=== PATIENT | male | born 1955 | race Caucasian/White ===

== ENCOUNTER → 2017-12-11 12:59 | Outpatient (CLI) | payer OTHER, SELFPAY ==
[2017-12-11 15:01] LABS: Appearance Urine UA Clear; Color Urine UA Yellow; Specific Gravity Urine UA <=1.005 (1.000-1.035); pH Urine UA 5.5 (4.5-8.0)
[2017-12-11 15:02] LABS: Bilirubin Urine UA Negative (NEGATIVE); Glucose Urine UA Normal (Normal); Ketones Urine UA NEGATIVE (NEGATIVE); Nitrite Urine UA Negative (Negative); Occult Blood Urine UA Trace-Lysed (Negative); Protein Urine UA Negative (Negative); Urobilinogen Urine UA 0.2 E.U./dL (0.2)
[2017-12-11 15:03] LABS: Bacteria Urine Few (2-10); Leukocyte Esterase Urine UA 1+ (NEGATIVE); RBC Urine 0-1/HPF (0-5/HPF); Squamous Epithelial Cell Urine 0-1 /HPF; WBC Urine 5-10/HPF (0-5/HPF)
[2017-12-11 15:04] LABS: Culture Indicated Urine Specimen Cultured
== END ==
PROVIDERS: Family Provider Internal Medicine; PCP Internal Medicine; Visit Provider Urology
DX: N39.0 Urinary tract infection, site not specified (principal)
CPT/HCPCS: 81001; 87086

== ENCOUNTER → 2018-03-26 09:44 | Outpatient (CLI) | payer OTHER, SELFPAY ==
[2018-03-26 11:03] LABS: Appearance Urine UA SL CLOUDY; Bilirubin Urine UA NEGATIVE (NEGATIVE); Color Urine UA YELLOW; Glucose Urine UA NEGATIVE (Negative); Ketones Urine UA NEGATIVE (NEGATIVE); Leukocyte Esterase Urine UA 3+ (NEGATIVE); Nitrite Urine UA NEGATIVE (Negative); Occult Blood Urine UA TRACE-INTACT (Negative); Protein Urine UA NEGATIVE (Negative); Specific Gravity Urine UA <=1.005 (1.000-1.035); Urobilinogen Urine UA 0.2 E.U./dL (0.2)
[2018-03-26 11:33] LABS: Bacteria Urine Moderate (10-30); Culture Indicated Urine Specimen Cultured; RBC Urine 1-5/HPF (0-5/HPF); Squamous Epithelial Cell Urine 1-5 /HPF; WBC Urine 30-100/HPF (0-5/HPF)
== END ==
PROVIDERS: PCP Internal Medicine; Visit Provider Urology
DX: N39.0 Urinary tract infection, site not specified (principal)
CPT/HCPCS: 81001; 87077; 87086; 87186

== ENCOUNTER → 2018-04-28 11:29 | Outpatient (CLI) | payer OTHER, SELFPAY ==
[2018-04-28 12:01] LABS: Appearance Urine UA CLEAR; Bilirubin Urine UA NEGATIVE (NEGATIVE); Color Urine UA YELLOW; Glucose Urine UA NEGATIVE (Negative); Ketones Urine UA NEGATIVE (NEGATIVE); Leukocyte Esterase Urine UA 1+ (NEGATIVE); Nitrite Urine UA NEGATIVE (Negative); Occult Blood Urine UA NEGATIVE (Negative); Protein Urine UA NEGATIVE (Negative); Urobilinogen Urine UA 0.2 E.U./dL (0.2); pH Urine UA 5.5 (4.5-8.0)
[2018-04-28 12:25] LABS: Bacteria Urine Few (2-10); Culture Indicated Urine Specimen Cultured; RBC Urine 0-1/HPF (0-5/HPF); Squamous Epithelial Cell Urine 1-5 /HPF; WBC Urine 10-30/HPF (0-5/HPF)
== END ==
PROVIDERS: Family Provider Internal Medicine; PCP Internal Medicine; Visit Provider Urology
DX: N39.0 Urinary tract infection, site not specified (principal)
CPT/HCPCS: 81001; 81015; 87077; 87086; 87186

== ENCOUNTER → 2019-08-31 10:19 | Outpatient (CLI) | payer OTHER, SELFPAY ==
[2019-09-01 08:17] LABS: PSA Ultrasensitive <0.014 ng/mL (0.000-4.000)
== END ==
PROVIDERS: Family Provider Internal Medicine; Referring Provider Urology; Visit Provider Urology
DX: C61 Malignant neoplasm of prostate (principal)
CPT/HCPCS: 36415; 84153

== ENCOUNTER → 2020-08-17 08:29 | Outpatient (CLI) | payer OTHER, SELFPAY ==
[2020-08-18 05:42] LABS: PSA Ultrasensitive <0.014 ng/mL (0.000-4.000)
== END ==
PROVIDERS: Family Provider Internal Medicine; PCP Internal Medicine; Referring Provider Urology; Visit Provider Urology
DX: C61 Malignant neoplasm of prostate (principal)
CPT/HCPCS: 36415; 84153

== ENCOUNTER → 2020-12-21 13:07 | Outpatient (CLI) | payer OTHER, SELFPAY ==
[2020-12-21 14:26] LABS: COVID19 -Nasal RAPID Negative (Negative)
== END ==
PROVIDERS: Family Provider Internal Medicine; PCP Internal Medicine; Visit Provider Nurse Practitioner Family
DX: Z20.822 Contact with and (suspected) exposure to COVID-19 (principal)
CPT/HCPCS: 87635

== ENCOUNTER 2021-09-03 19:15 | Emergency (ER) | payer OTHER, MEDICARE, SELFPAY ==
[2021-09-03 19:28] VITALS: BP 139/94; PULSE 81; RESP 15; TEMP 37.9; O2SAT 96; BMI 35.2
--- NOTE | 2021-09-03 19:45 | ED.GENADULT ---
HPI - General Adult General Chief complaint: Urogenital-Male Stated complaint: bladder infection, states needs a catheter Time Seen by Provider: 09/03/21 19:30 Source: patient Mode of arrival: Ambulatory Limitations: no limitations History of Present Illness HPI narrative: 66-year-old male. Has a history of prostate cancer. Has had as prostate removed. He also had a bladder diverticulum that was repaired at the time of his prostate removal. Is here for evaluation of what he thinks is a bladder infection. He had some minor discomfort in his lower abdomen that started this morning. He states that he is also having problems emptying his bladder. He has no abdominal tenderness. No chest pain. No shortness of breath. No testicular pain. No specific dysuria nor frequency nor burning or itching. No change in bowel habits. He states that he was persuaded to come to the emergency department by his and also has been told by his urologist in the past that if he ever had infection he needs to have it treated before it reached his kidneys. Related Data Previous Rx's Medication Instructions Recorded clopidogrel 75 mg tablet (Plavix) 75 mg PO QDAY #20 tabs 06/14/16 Allergies Allergy/AdvReac Type Severity Reaction Status Date / Time No Known Drug Allergies Allergy Unknown Verified 09/03/21 19:34 onion Allergy Unknown Verified 09/03/21 19:34 ONION Allergy Unknown Uncoded 12/20/20 10:01 Review of Systems Constitutional Constitutional: Denies fever(s) Cardiovascular Cardiovascular: Reports system reviewed and no additional complaints, except as documented Respiratory Respiratory: Reports system reviewed and no additional complaints, except as documented Gastrointestinal Gastrointestinal: Reports as per HPI and Reports system reviewed and no additional complaints, except as documented Genitourinary Genitourinary: Reports system reviewed and no additional complaints, except as documented and Reports as per HPI Integumentary/Breasts Skin/Breast: Reports system reviewed and no additional complaints, except as documented Neurologic Neurologic: Reports system reviewed and no additional complaints, except as documented Hematologic/Lymphatic On Anticoagulants: No Patient History Medical History (Updated 09/03/21 @ 20:49 by Wander Avila DO) Prostate cancer Surgical History (Updated 09/03/21 @ 19:51 by Wander Avila DO) H/O prostatectomy Social History Smoking Status: Never smoker Smoking Status: Never smoker alcohol intake frequency: holidays/special occasions only Substance Use Type: does not use Exam Initial Vital Signs Initial Vital Signs: Vital Signs Temperature 100.3 F H 09/03/21 19:28 Pulse Rate 81 09/03/21 19:28 Respiratory Rate 15 09/03/21 19:28 Blood Pressure 139/94 H 09/03/21 19:28 Pulse Oximetry 96 09/03/21 19:28 Oxygen Delivery Method 09/03/21 19:28 Const General: cooperative, healthy appearing and comfortable HENMT Head: normal to inspection and normocephalic Eyes General: Yes appearance normal, both eyes and all related structures Resp Effort & Inspection: normal respiratory effort Auscultation: clear to auscultation bilaterally Cardio Rate: regular rate Rhythm: regular rhythm GI Inspection: normal to inspection Palpation: soft and No tender Back/Spine/Pelvis Back: No CVA tenderness Skin General: no rashes or lesions noted Neuro General: patient alert, patient awake and moves all extremities Extrem General: normal to inspection and capillary refill normal Psych Appearance: grossly normal and well kempt Course Orders Ordered: ED Orders 09/03/21 19:35 Urine Culture Stat Urine Microscopic Stat Vital Signs Vital signs: Vital Signs - 8 hr 09/03/21 19:28 09/03/21 21:16 Temperature 100.3 F H Pulse Rate 81 73 Respiratory Rate 15 18 Blood Pressure 139/94 H 158/79 H Pulse Oximetry 96 98 Oxygen Delivery Method Room Air Room Air Medical Decision Making Lab Data Labs: Lab Results 09/03/21 Range/Units 19:35 Urine RBC 1-5/hpf (0-5/HPF) Urine WBC 1-5/hpf (0-5/HPF) Ur Squamous Epith Cells 0-1 /hpf (0-5/HPF) Urine Bacteria None seen (None) Ur Culture Indicated? Culture not indicate Urine Dip Bedside Urine Glucose Negative Bedside Urine Bilirubin - Negative Bedside Urine Ketone - Negative Urine Specific Spencer 1.015 Bedside Urine Occult Blood - Negative Bedside Urine pH 6 Bedside Urine Protein - Negative Bedside Urine Urobilinogen - Negative Bedside Urine Nitrite - Negative Bedside Urine Leukocytes - Negative Esterase Point of care testing: Urine Dip Bedside Urine Glucose Negative Bedside Urine Bilirubin - Negative Bedside Urine Ketone - Negative Urine Specific Spencer 1.015 Bedside Urine Occult Blood - Negative Bedside Urine pH 6 Bedside Urine Protein - Negative Bedside Urine Urobilinogen - Negative Bedside Urine Nitrite - Negative Bedside Urine Leukocytes - Negative Esterase MDM Narrative Medical decision making narrative: Patient's urinalysis today does not show any signs of an infection. Bladder scan showed approximately 700 cc so a Brian catheter was placed with return of 700-800 cc. No blood. He has no other symptoms that would make me concerned about a specific source of infection to include skin symptoms are lung symptoms or abdominal symptoms. No indication for antibiotics. Will wait for the culture to resolved. Will discharge home with a Brian catheter in place. He will contact his urologist for a follow-up. He is given return precautions. He expressed understanding and agreement Discharge Plan Departure Patient Disposition: Home Clinical Impression: Acute retention of urine Instructions: How to Care for Your Brian Catheter -- Male, DI for Urinary Retention in Men Activity Restrictions/Additional Instructions: A urine culture was pending at the time your discharge we will contact you of we need to start any antibiotics. Tomorrow contact your primary doctor and also your urologist for a follow-up. Return to the emergency department for any new or worsening symptoms. Prescriptions: No Action clopidogrel [Plavix] 75 MG tablet 75 mg PO QDAY Qty: 20 0RF Referrals: Vitor Valdez MD [Primary Care Provider] - Visit Report Forms: Patient Portal/API
[2021-09-03 20:08] LABS: Bacteria Urine None Seen; RBC Urine 1-5/HPF (0-5/HPF); Squamous Epithelial Cell Urine 0-1 /HPF (0-5/HPF); WBC Urine 1-5/HPF (0-5/HPF)
--- NOTE | 2021-09-03 20:09 | PC.NURSE ---
16fr arthur placed at this time. Pt bladder scan prior to insertion revealed 712mL. Urine output from arthur catheter was 800mL straw-colored urine. Pt reports relief of lower abdominal pressure. Provider notified.
[2021-09-03 21:16] VITALS: BP 158/79; PULSE 73; RESP 18; O2SAT 98
== END 2021-09-03 21:17 | disposition home or self-care (01) ==
PROVIDERS: Emergency Provider Emergency Medicine; Family Provider Internal Medicine; PCP Internal Medicine
DX: R33.8 Other retention of urine (principal)
CPT/HCPCS: 51798; 81003; 81015; 87086; 99283